=== PATIENT | female | born 1960 | race Two or more races ===

== ENCOUNTER 2024-06-05 10:45 | Emergency (ER) | payer OTHER ==
[~2024-06-05] VITALS: Ht 160 cm; Wt 68.2 kg
[2024-06-05 10:58] VITALS: TEMP 98
[2024-06-05] MEDS ORDERED: ATEN-73 PO (11:01)
[2024-06-05] MEDS ORDERED: LISI-892 PO (11:01)
[2024-06-05] MEDS ORDERED: ATOR10TA PO (11:01)
[2024-06-05] MEDS ORDERED: HYDR25TA2 PO (11:01)
[2024-06-05] MEDS ORDERED: GLIP10TA17 PO (11:01)
[2024-06-05] MEDS ORDERED: EMPA10TA3 PO (11:01)
[2024-06-05] MEDS ORDERED: METF-1211 PO (11:01)
[2024-06-05] MEDS: LIDOCAINE 1% 10 ML VIAL SQ ONE (11:22)
[2024-06-05] MEDS: ONDANSETRON HCL 4 MG/2 ML VIAL IM ONE (11:22)
[2024-06-05] MEDS: MORPHINE SULFATE 4 MG/ML SYRINGE IM ONE (11:23)
[2024-06-05] MEDS: KETOROLAC TROMETHAMINE 60 MG/2 ML VIAL IM ONE (11:24)
[2024-06-05] MEDS: BACITRACIN 0.9 GM PACKET OINTMENT TP ONE (11:24)
[2024-06-05] MEDS: PERTUSS(ACELL),DIPH,TET/PF 0.5 ML SYRINGE [ADULT] IM. ONE (11:27)
[2024-06-05 14:20] VITALS: BP 133/86; PULSE 77; RESP 18; O2SAT 98
== END 2024-06-05 14:31 | disposition home or self-care (01) ==
LOC: EMS 10:45
DX: S01.21XA Laceration without foreign body of nose, initial encounter (principal); S80.212A Abrasion, left knee, initial encounter; M25.552 Pain in left hip; M19.90 Unspecified osteoarthritis, unspecified site; E11.9 Type 2 diabetes mellitus without complications; I10 Essential (primary) hypertension; Z79.899 Other long term (current) drug therapy; Z90.710 Acquired absence of both cervix and uterus; W01.0XXA Fall on same level from slipping, tripping and stumbling without subsequent striking against object, initial encounter; Y93.89 Activity, other specified; Y92.89 Other specified places as the place of occurrence of the external cause; Y99.8 Other external cause status
CPT/HCPCS: 99284; 82962; 70160; 73503; 73562; 90715; 90471; 12011; 96372; J1885; J2270; J2405; J3490

== ENCOUNTER 2024-06-07 15:09 | Emergency (ER) | payer OTHER ==
[~2024-06-07] VITALS: Ht 154.9 cm; Wt 70.9 kg
[~2024-06-07 15:09] MED LIST: ATEN-73 PO; ATOR10TA PO; EMPA10TA3 PO; GLIP10TA17 PO; HYDR25TA2 PO; LISI-892 PO; METF-1211 PO
[2024-06-07 15:16] VITALS: BP 151/87; PULSE 95; RESP 18; TEMP 98.5; O2SAT 98
== END 2024-06-07 16:45 | disposition left against medical advice (07) ==
LOC: EMS 15:09
DX: J34.89 Other specified disorders of nose and nasal sinuses (principal); Z53.21 Procedure and treatment not carried out due to patient leaving prior to being seen by health care provider
CPT/HCPCS: 82962

== ENCOUNTER 2024-06-12 11:36 | Emergency (ER) | payer OTHER ==
[~2024-06-12] VITALS: Ht 154.9 cm; Wt 68.2 kg
[2024-06-12 11:55] VITALS: BP 150/78; PULSE 86; RESP 16; TEMP 98.4; O2SAT 98
== END 2024-06-12 13:29 | disposition home or self-care (01) ==
LOC: EMS 11:36
DX: S00.30XD Unspecified superficial injury of nose, subsequent encounter (principal); E11.9 Type 2 diabetes mellitus without complications; I10 Essential (primary) hypertension; Z48.02 Encounter for removal of sutures; Z79.899 Other long term (current) drug therapy; Z90.710 Acquired absence of both cervix and uterus; W19.XXXD Unspecified fall, subsequent encounter
CPT/HCPCS: 82962; 99282